=== PATIENT | male | born 1955 | race African-American/Black ===

== ENCOUNTER 2017-11-06 23:41 | Inpatient (IN) ==
[2017-11-07] MEDS ORDERED: ONDANSETRON 4 MG/2 ML VIAL IV STA (00:51)
[2017-11-07] MEDS ORDERED: ONDANSETRON 4 MG/2 ML VIAL ONE (01:04)
[2017-11-07] MEDS ORDERED: MORPHINE 4 MG/1 ML VIAL IV STA (01:19)
[2017-11-07] MEDS ORDERED: MORPHINE 4 MG/1 ML VIAL ONE (01:56)
[2017-11-07 01:59] LABS: Basophils % 0.5 % (0.0-0.8); Eosinophils % 0.1 % (0.00-10.9); Hematocrit 42.3 VOL% (42.0-52.0); Hemoglobin 14.2 GM/DL (14.0-18.0); Immature Granulocytes % 0.3 %; Immature Granulocytes Absolute 0.02 #; Lymphocytes # 1.5 10*3/uL (1.4-4.0); Lymphocytes % 19.1 % (21.2-54.2); Mean Corpuscular HGB Conc 33.6 GM/DL (32-36); Mean Corpuscular Hemoglobin 28 PG (27-34); Mean Corpuscular Volume 83.6 FL (87-102); Mean Platelet Volume 9.8 FL (9.6-12.0); Monocytes # 0.6 10*3/uL (0.11-0.8); Monocytes % 8.2 % (1.7-12.7); Neutrophils # 5.5 10*3/uL (1.4-7.4); Neutrophils % 71.8 % (38.7-73.9); Platelet Count 400 T/CUMM (130-400); Red Blood Count 5.06 MC/CUMM (3.8-5.5); Red Cell Distribution Width 11.7 % (9.3-17.3); White Blood Count 7.7 T/CUMM (4-12)
[2017-11-07 02:13] LABS: Apearance,Urine CLEAR (Clear); Bilirubin,Urine Negative (Negative); Blood, Urine Negative (Negative); Glucose,Urine (UA) Negative (Negative); Hyaline Casts,Urine 1 /LPF (0-3); Ketones,Urine Negative (Negative); Mucus,Urine Occasional /LPF (Occasional); Nitrite,Urine Negative (Negative); Protein,Urine 30 MG/DL; RBC,Urine <1 /HPF (0-4); Urine Color Yellow (Yellow); Urine Specific Gravity 1.011 (1.001-1.035); Urine Urobilinogen < 2.0 EU/DL (0.2-1.0); WBC,Urine <1 /HPF (0-6)
[2017-11-07 03:09] LABS: Alanine Aminotransferase 19 U/L (16-61); Albumin 4.6 G/DL (3.4-5.0); Alkaline Phosphatase 73 U/L (45-117); Aspartate Amino Transferase 16 U/L (0-37); Bilirubin,Total < 0.39 MG/DL (0.2-1.0); Blood Urea Nitrogen 43 MG/DL (7-18); Calcium 12.9 MG/DL (8.5-10.1); Glucose 96 MG/DL (74-106); Osmolality,Calculated 270.8 MOS/KG (273-304); Sodium 130 MMOL/L (136-145); Total Protein 8.2 G/DL (6.4-8.3); Troponin I Only < 0.015 NG/ML (0.00-0.045)
[2017-11-07 03:24] LABS: Potassium 7.7 MMOL/L (3.5-5.1)
[2017-11-07] MEDS ORDERED: CALCIUM GLUCONATE 2,000 MG in SODIUM CHLORIDE 0.9% 100 ML IV ONE (03:42)
[2017-11-07] MEDS ORDERED: SODIUM BICARBONATE 50 MEQ/50 ML VIAL IV STA (03:43)
[2017-11-07] MEDS ORDERED: DEXTROSE 50% 25 GM/50 ML VIAL IV STA (03:44)
[2017-11-07] MEDS ORDERED: INSULIN REGULAR 100 UNIT/ML IV STA (03:44)
[2017-11-07] MEDS ORDERED: SODIUM CHLORIDE 0.9% 2,000 ML IV STA (03:50)
[2017-11-07] MEDS ORDERED: SODIUM BICARBONATE 50 MEQ/50 ML SYRINGE IV ONE ×2 (03:58→04:00)
[2017-11-07] MEDS ORDERED: INSULIN REGULAR 100 UNIT/ML ONE (03:59)
[2017-11-07] MEDS: SODIUM CHLORIDE 0.9% 1,000 ML IV SCH (04:21)
[2017-11-07] MEDS ORDERED: ACETAMINOPHEN 325 MG TABLET PO PRN (05:41)
[2017-11-07] MEDS ORDERED: ONDANSETRON 4 MG/2 ML VIAL IV PRN (05:41)
[2017-11-07] MEDS ORDERED: DEXTROSE 50% 25 GM/50 ML VIAL IV PRN (05:53)
[2017-11-07] MEDS ORDERED: GLUCAGON 1 MG VIAL IM PRN (05:53)
[2017-11-07] MEDS ORDERED: SODIUM POLYSTYRENE SULFATE 15 GM/60 ML BOTTLE ONE (06:36)
[2017-11-07] MEDS: SODIUM POLYSTYRENE SULFATE 15 GM/60 ML BOTTLE PO SCH ×3 (06:39→19:06)
[2017-11-07] MEDS: INSULIN REGULAR 100 UNIT/ML SUBCUT SCH ×4 (09:09→21:47)
[2017-11-07] MEDS ORDERED: amLODIPine 10 MG TABLET ONE (09:13)
[2017-11-07] MEDS ORDERED: ASPIRIN CHEW 81 MG TABLET PO ONE (09:14)
[2017-11-07] MEDS ORDERED: LACOSAMIDE 50 MG TABLET ONE (09:14)
[2017-11-07] MEDS ORDERED: CARVEDILOL 3.125 MG TABLET ONE (09:14)
[2017-11-07] MEDS ORDERED: CLOPIDOGREL 75 MG TABLET ONE (09:14)
[2017-11-07] MEDS: GEMFIBROZIL 600 MG TABLET PO SCH ×2 (09:20→17:16)
[2017-11-07] MEDS: CLOPIDOGREL 75 MG TABLET PO SCH (09:21)
[2017-11-07] MEDS: amLODIPine 10 MG TABLET PO SCH (09:21)
[2017-11-07] MEDS: ASPIRIN EC 81 MG TABLET PO SCH (09:21)
[2017-11-07] MEDS: CARVEDILOL 6.25 MG TABLET PO SCH ×2 (09:22→21:41)
[2017-11-07] MEDS: LACOSAMIDE 50 MG TABLET PO SCH ×2 (09:22→21:40)
[2017-11-07] MEDS: MEMANTINE 10 MG TABLET PO SCH ×2 (10:34→21:41)
[2017-11-07] MEDS: FOLIC ACID 1 MG TABLET PO SCH (10:34)
[2017-11-07] MEDS: levETIRAcetam 250 MG TABLET PO SCH ×2 (10:35→21:40)
[2017-11-07] MEDS: ALLOPURINOL 100 MG TABLET PO SCH (10:36)
[2017-11-07] MEDS: FLUTICASONE 50 MCG NASAL SPRAY 16 GM BOTTLE BOTH NARES SCH (10:37)
[2017-11-07] MEDS ORDERED: ALBUTEROL 2.5 MG/3 ML NEB RESP TX PRN (11:00)
[2017-11-07] MEDS: tiZANidine 4 MG TABLET PO PRN ×2 (11:39→21:42)
[2017-11-07 13:06] LABS: Calcium 12.6 MG/DL (8.5-10.1); Osmolality,Calculated 279.2 MOS/KG (273-304); Potassium 5.6 MMOL/L (3.5-5.1)
[2017-11-07] MEDS: MONTELUKAST 10 MG TABLET PO SCH (21:40)
[2017-11-07] MEDS: DONEPEZIL 10 MG TABLET PO SCH (21:41)
[2017-11-07] MEDS: PRAVASTATIN 20 MG TABLET PO SCH (21:41)
[2017-11-08] MEDS: SODIUM CHLORIDE 0.9% 1,000 ML IV SCH (00:20)
[2017-11-08] MEDS: SODIUM POLYSTYRENE SULFATE 15 GM/60 ML BOTTLE PO SCH ×2 (00:41→06:11)
[2017-11-08 05:20] LABS: Basophils % 0.9 % (0.0-0.8); Eosinophils # 0.3 10*3/uL (0.0-0.87); Eosinophils % 5.4 % (0.00-10.9); Hematocrit 33.5 VOL% (42.0-52.0); Hemoglobin 11.5 GM/DL (14.0-18.0); Immature Granulocytes % 0.2 %; Immature Granulocytes Absolute 0.01 #; Lymphocytes # 1.6 10*3/uL (1.4-4.0); Lymphocytes % 34.9 % (21.2-54.2); Mean Corpuscular HGB Conc 34.3 GM/DL (32-36); Mean Corpuscular Hemoglobin 29 PG (27-34); Mean Corpuscular Volume 83.1 FL (87-102); Mean Platelet Volume 9.7 FL (9.6-12.0); Monocytes # 0.8 10*3/uL (0.11-0.8); Monocytes % 17.1 % (1.7-12.7); Neutrophils # 1.9 10*3/uL (1.4-7.4); Neutrophils % 41.5 % (38.7-73.9); Platelet Count 283 T/CUMM (130-400); Red Blood Count 4.03 MC/CUMM (3.8-5.5); Red Cell Distribution Width 11.3 % (9.3-17.3); White Blood Count 4.6 T/CUMM (4-12)
[2017-11-08 05:54] LABS: Eosinophils 3 % (0-10); Lymphocytes 41 % (20-55); Segmented Neutrophils 45 % (50-85); Total Cells Counted 100
[2017-11-08 06:01] LABS: Calcium 11.6 MG/DL (8.5-10.1); Osmolality,Calculated 286.3 MOS/KG (273-304); Potassium 3.9 MMOL/L (3.5-5.1); Thyroid Stimulating Hormone 0.743 uIU/ml (0.358-3.74)
[2017-11-08] MEDS: INSULIN REGULAR 100 UNIT/ML SUBCUT SCH ×4 (11:24→21:34)
[2017-11-08] MEDS: ASPIRIN EC 81 MG TABLET PO SCH (11:25)
[2017-11-08] MEDS: CARVEDILOL 6.25 MG TABLET PO SCH ×2 (11:25→22:30)
[2017-11-08] MEDS: GEMFIBROZIL 600 MG TABLET PO SCH ×2 (11:25→18:09)
[2017-11-08] MEDS: amLODIPine 10 MG TABLET PO SCH (11:26)
[2017-11-08] MEDS: levETIRAcetam 250 MG TABLET PO SCH ×2 (11:26→21:29)
[2017-11-08] MEDS: FOLIC ACID 1 MG TABLET PO SCH (11:26)
[2017-11-08] MEDS: FLUTICASONE 50 MCG NASAL SPRAY 16 GM BOTTLE BOTH NARES SCH (11:26)
[2017-11-08] MEDS: MEMANTINE 10 MG TABLET PO SCH ×2 (11:26→21:30)
[2017-11-08] MEDS: PANTOPRAZOLE 40 MG TABLET PO SCH (11:27)
[2017-11-08] MEDS: LACOSAMIDE 50 MG TABLET PO SCH ×2 (11:27→21:28)
[2017-11-08] MEDS: CLOPIDOGREL 75 MG TABLET PO SCH (11:27)
[2017-11-08] MEDS: ALLOPURINOL 100 MG TABLET PO SCH (11:27)
[2017-11-08] MEDS ORDERED: FUROSEMIDE 40 MG/4 ML VIAL IV ONE (12:26)
[2017-11-08] MEDS: ALBUTEROL/IPRATROPIUM 3 ML NEB RESP TX SCH ×2 (14:03→19:32)
[2017-11-08] MEDS ORDERED: guaiFENesin 200 MG/10 ML UDCUP PO PRN (15:00)
[2017-11-08] MEDS: AZITHROMYCIN 250 MG TABLET PO SCH (17:36)
[2017-11-08] MEDS: cefTRIAXone 1,000 MG in SYRINGE 1 EACH IV SCH (17:42)
[2017-11-08] MEDS: PRAVASTATIN 20 MG TABLET PO SCH (21:28)
[2017-11-08] MEDS: DONEPEZIL 10 MG TABLET PO SCH (21:28)
[2017-11-08] MEDS: MONTELUKAST 10 MG TABLET PO SCH (21:28)
[2017-11-08] MEDS: ENOXAPARIN 30 MG/0.3 ML SYRINGE SUBCUT SCH (21:29)
[2017-11-09] MEDS: SODIUM CHLORIDE 0.9% 1,000 ML IV SCH ×2 (02:50→16:32)
[2017-11-09 05:03] LABS: Basophils % 0.6 % (0.0-0.8); Eosinophils # 0.3 10*3/uL (0.0-0.87); Eosinophils % 5.8 % (0.00-10.9); Hematocrit 34.3 VOL% (42.0-52.0); Hemoglobin 11.4 GM/DL (14.0-18.0); Immature Granulocytes % 0.2 %; Immature Granulocytes Absolute 0.01 #; Lymphocytes # 1.6 10*3/uL (1.4-4.0); Lymphocytes % 30.7 % (21.2-54.2); Mean Corpuscular HGB Conc 33.2 GM/DL (32-36); Mean Corpuscular Hemoglobin 28 PG (27-34); Mean Corpuscular Volume 85.1 FL (87-102); Mean Platelet Volume 9.5 FL (9.6-12.0); Monocytes # 0.8 10*3/uL (0.11-0.8); Monocytes % 15.6 % (1.7-12.7); Neutrophils # 2.4 10*3/uL (1.4-7.4); Neutrophils % 47.1 % (38.7-73.9); Platelet Count 239 T/CUMM (130-400); Red Blood Count 4.03 MC/CUMM (3.8-5.5); Red Cell Distribution Width 11.3 % (9.3-17.3); White Blood Count 5.1 T/CUMM (4-12)
[2017-11-09 05:34] LABS: Eosinophils 6 % (0-10); Giant Platelets Few; Hypochromasia 1+; Lymphocytes 39 % (20-55); Platelet Estimate Adequate; Segmented Neutrophils 45 % (50-85); Total Cells Counted 100
[2017-11-09 05:35] LABS: Calcium 11.2 MG/DL (8.5-10.1); Osmolality,Calculated 287.8 MOS/KG (273-304); Potassium 3.4 MMOL/L (3.5-5.1)
[2017-11-09] MEDS ORDERED: POTASSIUM CHLORIDE 20 MEQ TABLET PO PRN (06:57)
[2017-11-09] MEDS: ALBUTEROL/IPRATROPIUM 3 ML NEB RESP TX SCH ×4 (07:22→19:13)
[2017-11-09 08:41] LABS: Total Protein (Chem) 6.6 G/DL (6.4-8.3)
[2017-11-09] MEDS: INSULIN REGULAR 100 UNIT/ML SUBCUT SCH ×3 (10:04→16:34)
[2017-11-09] MEDS: ASPIRIN EC 81 MG TABLET PO SCH (10:05)
[2017-11-09] MEDS: GEMFIBROZIL 600 MG TABLET PO SCH ×2 (10:05→16:37)
[2017-11-09] MEDS: levETIRAcetam 250 MG TABLET PO SCH ×2 (10:06→21:56)
[2017-11-09] MEDS: FLUTICASONE 50 MCG NASAL SPRAY 16 GM BOTTLE BOTH NARES SCH (10:06)
[2017-11-09] MEDS: CARVEDILOL 6.25 MG TABLET PO SCH ×2 (10:06→21:56)
[2017-11-09] MEDS: FOLIC ACID 1 MG TABLET PO SCH (10:06)
[2017-11-09] MEDS: amLODIPine 10 MG TABLET PO SCH (10:07)
[2017-11-09] MEDS: PANTOPRAZOLE 40 MG TABLET PO SCH (10:07)
[2017-11-09] MEDS: CLOPIDOGREL 75 MG TABLET PO SCH (10:07)
[2017-11-09] MEDS: MEMANTINE 10 MG TABLET PO SCH ×2 (10:07→21:56)
[2017-11-09] MEDS: ALLOPURINOL 100 MG TABLET PO SCH (10:08)
[2017-11-09] MEDS: LACOSAMIDE 50 MG TABLET PO SCH ×2 (10:08→21:55)
[2017-11-09] MEDS: AZITHROMYCIN 250 MG TABLET PO SCH (10:08)
[2017-11-09] MEDS: cefTRIAXone 1,000 MG in SYRINGE 1 EACH IV SCH (14:28)
[2017-11-09] MEDS: ENOXAPARIN 30 MG/0.3 ML SYRINGE SUBCUT SCH (21:55)
[2017-11-09] MEDS: MONTELUKAST 10 MG TABLET PO SCH (21:56)
[2017-11-09] MEDS: PRAVASTATIN 20 MG TABLET PO SCH (21:56)
[2017-11-09] MEDS: DONEPEZIL 10 MG TABLET PO SCH (22:09)
[2017-11-10] MEDS: INSULIN REGULAR 100 UNIT/ML SUBCUT SCH ×3 (04:59→11:31)
[2017-11-10] MEDS: SODIUM CHLORIDE 0.9% 1,000 ML IV SCH (06:00)
[2017-11-10] MEDS: ALBUTEROL/IPRATROPIUM 3 ML NEB RESP TX SCH ×3 (06:54→14:30)
[2017-11-10] MEDS: GEMFIBROZIL 600 MG TABLET PO SCH (07:58)
[2017-11-10] MEDS: FOLIC ACID 1 MG TABLET PO SCH (08:00)
[2017-11-10] MEDS: CARVEDILOL 6.25 MG TABLET PO SCH (08:00)
[2017-11-10] MEDS: ASPIRIN EC 81 MG TABLET PO SCH (08:00)
[2017-11-10] MEDS: CLOPIDOGREL 75 MG TABLET PO SCH (08:00)
[2017-11-10] MEDS: ALLOPURINOL 100 MG TABLET PO SCH (08:00)
[2017-11-10] MEDS: levETIRAcetam 250 MG TABLET PO SCH (08:00)
[2017-11-10] MEDS: AZITHROMYCIN 250 MG TABLET PO SCH (08:00)
[2017-11-10] MEDS: LACOSAMIDE 50 MG TABLET PO SCH (08:00)
[2017-11-10] MEDS: PANTOPRAZOLE 40 MG TABLET PO SCH (08:00)
[2017-11-10] MEDS: MEMANTINE 10 MG TABLET PO SCH (08:00)
[2017-11-10] MEDS: amLODIPine 10 MG TABLET PO SCH (08:01)
[2017-11-10] MEDS: FLUTICASONE 50 MCG NASAL SPRAY 16 GM BOTTLE BOTH NARES SCH (08:01)
[2017-11-10 09:45] LABS: Albumin (SPE) 4.4 G/DL (3.2-5.3); Albumin (SPE) Rel % 66.8 %; Alpha 1 (SPE) 0.1 G/DL (0.1-0.4); Alpha 1 (SPE) Rel % 2.4 %; Alpha 2 (SPE) 0.6 G/DL (0.4-1.0); Alpha 2 (SPE) Rel % 8.3 %; Beta (SPE) 0.7 G/DL (0.5-1.1); Beta (SPE) Rel % 11.2 %; Gamma (SPE) 0.8 G/DL (0.7-1.7)
[2017-11-10 09:46] LABS: Gamma (SPE) Rel % 11.3 %
[2017-11-10 11:00] LABS: Free PSA/PSA Ratio 0.1 ratio
[2017-11-10 11:39] VITALS: BP 133/67
[2017-11-10] MEDS: cefTRIAXone 1,000 MG in SYRINGE 1 EACH IV SCH (13:05)
== END 2017-11-10 15:16 | disposition home or self-care (01) | DRG 684 ==
LOC: N.ED 23:41 → N.EDINP 11-07 05:38 → N.TELES 11-07 10:30
PROVIDERS: ADMIT Internal Medicine; ATTEND Internal Medicine

== ENCOUNTER 2019-01-10 15:49 | Inpatient (IN) ==
[2019-01-10 16:27] LABS: Basophils % 0.3 % (0.0-0.8); Eosinophils # 0.1 10*3/uL (0.0-0.87); Eosinophils % 1.6 % (0.00-10.9); Hematocrit 27.4 VOL% (42.0-52.0); Hemoglobin 8.6 GM/DL (14.0-18.0); Immature Granulocytes % 0.4 %; Immature Granulocytes Absolute 0.03 #; Lymphocytes # 1.9 10*3/uL (1.4-4.0); Lymphocytes % 25.6 % (21.2-54.2); Mean Corpuscular HGB Conc 31.4 GM/DL (32-36); Monocytes % 13.5 % (1.7-12.7); NRBC # 0.02 10*3/uL; Neutrophils % 58.6 % (38.7-73.9); Platelet Count 255 T/CUMM (130-400); Red Blood Count 3.15 MC/CUMM (3.8-5.5); Red Cell Distribution Width 12.4 % (9.3-17.3); White Blood Count 7.5 T/CUMM (4-12)
[2019-01-10 16:43] LABS: Albumin 3.6 G/DL (3.4-5.0); Bilirubin,Total 0.5 MG/DL (0.2-1.0); Calcium 11.4 MG/DL (8.5-10.1); Osmolality,Calculated 308.1 MOS/KG (273-304); Total Protein 6.7 G/DL (6.4-8.3)
[2019-01-10] MEDS: METOPROLOL TARTRATE 50 MG TABLET PO SCH ×2 (19:02→21:00)
[2019-01-10] MEDS ORDERED: ONDANSETRON 4 MG/2 ML VIAL IV PRN (20:02)
[2019-01-10] MEDS ORDERED: ACETAMINOPHEN 325 MG TABLET PO PRN (20:02)
[2019-01-10 20:33] LABS: Basophils % 0.3 % (0.0-0.8); Eosinophils # 0.1 10*3/uL (0.0-0.87); Eosinophils % 1.8 % (0.00-10.9); Hematocrit 26.8 VOL% (42.0-52.0); Hemoglobin 8.3 GM/DL (14.0-18.0); Immature Granulocytes % 0.4 %; Immature Granulocytes Absolute 0.03 #; Lymphocytes # 2.2 10*3/uL (1.4-4.0); Mean Corpuscular Volume 88.2 FL (87-102); Mean Platelet Volume 10.3 FL (9.6-12.0); Monocytes % 10.6 % (1.7-12.7); NRBC # 0.02 10*3/uL; Neutrophils % 54.9 % (38.7-73.9); Platelet Count 231 T/CUMM (130-400); Red Blood Count 3.04 MC/CUMM (3.8-5.5); Red Cell Distribution Width 12.4 % (9.3-17.3); White Blood Count 6.8 T/CUMM (4-12)
[2019-01-10 21:08] LABS: Folate > 24.0 NG/ML (5.4-24.0); Vitamin B12 275 PG/ML (211-911)
[2019-01-10] MEDS: MONTELUKAST 10 MG TABLET PO SCH (21:20)
[2019-01-10] MEDS: DONEPEZIL 10 MG TABLET PO SCH (21:20)
[2019-01-10] MEDS: SIMVASTATIN 20 MG TABLET PO SCH (21:20)
[2019-01-10] MEDS: MEMANTINE 10 MG TABLET PO SCH (21:20)
[2019-01-10] MEDS: ENOXAPARIN 30 MG/0.3 ML SYRINGE SUBCUT SCH (21:20)
[2019-01-10] MEDS: levETIRAcetam 250 MG TABLET PO SCH (21:20)
[2019-01-10] MEDS: LACOSAMIDE 50 MG TABLET PO SCH (21:23)
[2019-01-10 21:34] LABS: Sedimentation Rate-Westergren 38 MM/HR (0-20)
[2019-01-10 23:37] LABS: Apearance,Urine CLEAR (Clear); Bilirubin,Urine Negative (Negative); Blood, Urine Negative (Negative); Glucose,Urine (UA) Negative (Negative); Ketones,Urine Negative (Negative); Mucus,Urine Occasional /LPF (Occasional); Nitrite,Urine Negative (Negative); Protein,Urine Negative; RBC,Urine <1 /HPF (0-4); Urine Color Colorless (Yellow); Urine Specific Gravity 1.009 (1.001-1.035); Urine Urobilinogen < 2.0 EU/DL (0.2-1.0); WBC,Urine <1 /HPF (0-6)
[2019-01-11 04:47] LABS: Basophils % 0.2 % (0.0-0.8); Eosinophils # 0.2 10*3/uL (0.0-0.87); Eosinophils % 2.9 % (0.00-10.9); Hematocrit 24.3 VOL% (42.0-52.0); Hemoglobin 7.8 GM/DL (14.0-18.0); Immature Granulocytes % 0.2 %; Immature Granulocytes Absolute 0.01 #; Lymphocytes # 2.2 10*3/uL (1.4-4.0); Lymphocytes % 37.4 % (21.2-54.2); Mean Corpuscular HGB Conc 32.1 GM/DL (32-36); Mean Corpuscular Volume 87.1 FL (87-102); Mean Platelet Volume 10.7 FL (9.6-12.0); Monocytes % 11.5 % (1.7-12.7); Neutrophils % 47.8 % (38.7-73.9); Platelet Count 235 T/CUMM (130-400); Red Blood Count 2.79 MC/CUMM (3.8-5.5); Red Cell Distribution Width 12.2 % (9.3-17.3); White Blood Count 5.8 T/CUMM (4-12)
[2019-01-11 05:01] LABS: Calcium 11.2 MG/DL (8.5-10.1); Troponin I 0.045 NG/ML (0.00-0.045)
[2019-01-11 05:09] LABS: Risk Ratio 4.86; Thyroid Stimulating Hormone 1.03 uIU/ml (0.358-3.74); VLDL CHOLESTEROL 77.2 MG/DL
[2019-01-11] MEDS ORDERED: CLOPIDOGREL 75 MG TABLET PO SCH (09:00)
[2019-01-11] MEDS: ASPIRIN EC 81 MG TABLET PO SCH (09:14)
[2019-01-11] MEDS: levETIRAcetam 250 MG TABLET PO SCH ×2 (09:14→21:03)
[2019-01-11] MEDS: METOPROLOL TARTRATE 50 MG TABLET PO SCH ×2 (09:14→21:25)
[2019-01-11] MEDS: ALLOPURINOL 100 MG TABLET PO SCH (09:15)
[2019-01-11] MEDS: PANTOPRAZOLE 40 MG TABLET PO SCH (09:15)
[2019-01-11] MEDS: MEMANTINE 10 MG TABLET PO SCH ×2 (09:15→21:26)
[2019-01-11] MEDS: LACOSAMIDE 50 MG TABLET PO SCH ×2 (09:16→21:25)
[2019-01-11] MEDS: SODIUM CHLORIDE 0.9% 1,000 ML IV SCH ×2 (09:16→18:57)
[2019-01-11 10:33] LABS: % Iron Saturation 34.7 % (18-50)
[2019-01-11 10:42] LABS: Hemoglobin A1 (Alkaline) 63.8 % (96.5-98.5); Hemoglobin A2 (Alkaline) 2.8 % (1.5-3.5)
[2019-01-11 13:51] LABS: Hemoglobin S (Alkaline) 33.4 %
[2019-01-11] MEDS ORDERED: CYANOCOBALAMIN 1000 MCG/1 ML VIAL IM ONE (17:48)
[2019-01-11] MEDS: DONEPEZIL 10 MG TABLET PO SCH (20:59)
[2019-01-11] MEDS: ENOXAPARIN 30 MG/0.3 ML SYRINGE SUBCUT SCH (21:02)
[2019-01-11] MEDS: MONTELUKAST 10 MG TABLET PO SCH (21:02)
[2019-01-11] MEDS: SIMVASTATIN 20 MG TABLET PO SCH (21:26)
[2019-01-12] MEDS: levETIRAcetam 250 MG TABLET PO SCH ×2 (08:31→22:19)
[2019-01-12] MEDS: CYANOCOBALAMIN 500 MCG TABLET PO SCH (08:31)
[2019-01-12] MEDS: PANTOPRAZOLE 40 MG TABLET PO SCH (08:31)
[2019-01-12] MEDS: ASPIRIN EC 81 MG TABLET PO SCH (08:31)
[2019-01-12] MEDS: METOPROLOL TARTRATE 50 MG TABLET PO SCH ×2 (08:31→22:19)
[2019-01-12] MEDS: LACOSAMIDE 50 MG TABLET PO SCH ×2 (08:31→22:16)
[2019-01-12] MEDS: MEMANTINE 10 MG TABLET PO SCH ×2 (08:32→22:17)
[2019-01-12] MEDS: ALLOPURINOL 100 MG TABLET PO SCH (08:34)
[2019-01-12 08:56] LABS: Basophils % 0.2 % (0.0-0.8); Eosinophils # 0.2 10*3/uL (0.0-0.87); Eosinophils % 3.5 % (0.00-10.9); Hematocrit 23.7 VOL% (42.0-52.0); Hemoglobin 7.3 GM/DL (14.0-18.0); Immature Granulocytes % 0.3 %; Immature Granulocytes Absolute 0.02 #; Lymphocytes # 1.5 10*3/uL (1.4-4.0); Lymphocytes % 24.2 % (21.2-54.2); Mean Corpuscular HGB Conc 30.8 GM/DL (32-36); Mean Corpuscular Volume 89.4 FL (87-102); Mean Platelet Volume 10.2 FL (9.6-12.0); Monocytes % 10.5 % (1.7-12.7); NRBC # 0.02 10*3/uL; Neutrophils % 61.3 % (38.7-73.9); Platelet Count 189 T/CUMM (130-400); Red Blood Count 2.65 MC/CUMM (3.8-5.5); Red Cell Distribution Width 12.5 % (9.3-17.3); White Blood Count 6.1 T/CUMM (4-12)
[2019-01-12] MEDS ORDERED: SODIUM CHLORIDE 0.9% 1,000 ML IV PRN (09:19)
[2019-01-12] MEDS: DONEPEZIL 10 MG TABLET PO SCH (22:18)
[2019-01-12] MEDS: MONTELUKAST 10 MG TABLET PO SCH (22:18)
[2019-01-12] MEDS: SIMVASTATIN 20 MG TABLET PO SCH (22:19)
[2019-01-12] MEDS: ENOXAPARIN 30 MG/0.3 ML SYRINGE SUBCUT SCH (22:20)
[2019-01-13 05:04] LABS: Calcium 10.6 MG/DL (8.5-10.1); Osmolality,Calculated 297.3 MOS/KG (273-304)
[2019-01-13 05:26] LABS: Basophils % 0.3 % (0.0-0.8); Eosinophils # 0.2 10*3/uL (0.0-0.87); Hematocrit 28.6 VOL% (42.0-52.0); Immature Granulocytes % 0.7 %; Immature Granulocytes Absolute 0.05 #; Lymphocytes # 1.6 10*3/uL (1.4-4.0); Lymphocytes % 23.4 % (21.2-54.2); Mean Corpuscular HGB Conc 32.2 GM/DL (32-36); Mean Corpuscular Volume 89.1 FL (87-102); Mean Platelet Volume 10.4 FL (9.6-12.0); NRBC # 0.05 10*3/uL; Neutrophils % 61.6 % (38.7-73.9); Platelet Count 192 T/CUMM (130-400); Red Cell Distribution Width 12.7 % (9.3-17.3); White Blood Count 6.9 T/CUMM (4-12)
[2019-01-13 05:28] LABS: Red Blood Count 3.21 MC/CUMM (3.8-5.5)
[2019-01-13 05:29] LABS: Hemoglobin 9.2 GM/DL (14.0-18.0)
[2019-01-13] MEDS: levETIRAcetam 250 MG TABLET PO SCH ×2 (09:11→20:57)
[2019-01-13] MEDS: MEMANTINE 10 MG TABLET PO SCH ×2 (09:11→20:59)
[2019-01-13] MEDS: CYANOCOBALAMIN 500 MCG TABLET PO SCH (09:11)
[2019-01-13] MEDS: METOPROLOL TARTRATE 50 MG TABLET PO SCH ×2 (09:11→20:57)
[2019-01-13] MEDS: LACOSAMIDE 50 MG TABLET PO SCH ×2 (09:11→20:58)
[2019-01-13] MEDS: ASPIRIN EC 81 MG TABLET PO SCH (09:11)
[2019-01-13] MEDS: PANTOPRAZOLE 40 MG TABLET PO SCH (09:11)
[2019-01-13] MEDS: ALLOPURINOL 100 MG TABLET PO SCH (09:11)
[2019-01-13] MEDS: DONEPEZIL 10 MG TABLET PO SCH (20:58)
[2019-01-13] MEDS: SIMVASTATIN 20 MG TABLET PO SCH (20:58)
[2019-01-13] MEDS: MONTELUKAST 10 MG TABLET PO SCH (20:58)
[2019-01-13] MEDS: ENOXAPARIN 40 MG/0.4 ML SYRINGE SUBCUT SCH (21:47)
[2019-01-14 06:07] LABS: Calcium 10.6 MG/DL (8.5-10.1); Osmolality,Calculated 289.7 MOS/KG (273-304)
[2019-01-14] MEDS: LACTATED RINGERS 1,000 ML IV SCH ×2 (06:34→23:27)
[2019-01-14] MEDS ORDERED: PROPOFOL 200 MG/20 ML VIAL IV ONE (08:00)
[2019-01-14] MEDS ORDERED: LIDOCAINE 2% 5 ML VIAL ONE (08:00)
[2019-01-14] MEDS: levETIRAcetam 250 MG TABLET PO SCH ×2 (08:54→23:22)
[2019-01-14] MEDS: METOPROLOL TARTRATE 50 MG TABLET PO SCH ×2 (08:55→23:23)
[2019-01-14] MEDS: LACOSAMIDE 50 MG TABLET PO SCH ×2 (08:56→23:24)
[2019-01-14] MEDS: PANTOPRAZOLE 40 MG TABLET PO SCH (08:56)
[2019-01-14] MEDS: ASPIRIN EC 81 MG TABLET PO SCH (08:56)
[2019-01-14] MEDS: CYANOCOBALAMIN 500 MCG TABLET PO SCH (14:59)
[2019-01-14] MEDS: ALLOPURINOL 100 MG TABLET PO SCH (15:00)
[2019-01-14] MEDS: MEMANTINE 10 MG TABLET PO SCH ×2 (15:00→23:23)
[2019-01-14] MEDS: CYANOCOBALAMIN 1000 MCG/1 ML VIAL IM SCH (15:00)
[2019-01-14] MEDS: ENOXAPARIN 40 MG/0.4 ML SYRINGE SUBCUT SCH (23:22)
[2019-01-14] MEDS: DONEPEZIL 10 MG TABLET PO SCH (23:23)
[2019-01-14] MEDS: SIMVASTATIN 20 MG TABLET PO SCH (23:23)
[2019-01-14] MEDS: MONTELUKAST 10 MG TABLET PO SCH (23:23)
[2019-01-15 05:25] LABS: Osmolality,Calculated 287.7 MOS/KG (273-304)
[2019-01-15] MEDS: ASPIRIN EC 81 MG TABLET PO SCH (09:40)
[2019-01-15] MEDS: PANTOPRAZOLE 40 MG TABLET PO SCH (09:40)
[2019-01-15] MEDS: levETIRAcetam 250 MG TABLET PO SCH ×2 (09:41→21:14)
[2019-01-15] MEDS: ALLOPURINOL 100 MG TABLET PO SCH (09:42)
[2019-01-15] MEDS: MEMANTINE 10 MG TABLET PO SCH ×2 (09:42→21:15)
[2019-01-15] MEDS: LACOSAMIDE 50 MG TABLET PO SCH ×2 (09:43→21:14)
[2019-01-15] MEDS: METOPROLOL TARTRATE 50 MG TABLET PO SCH ×2 (09:43→21:15)
[2019-01-15] MEDS: LACTATED RINGERS 1,000 ML IV SCH (09:44)
[2019-01-15] MEDS: CYANOCOBALAMIN 1000 MCG/1 ML VIAL IM SCH (09:44)
[2019-01-15] MEDS ORDERED: BISACODYL 5 MG TABLET PO ONE (12:00)
[2019-01-15] MEDS ORDERED: POLYETHYLENE GLYCOL POWDER 255 GM BOTTLE PO ONE (13:00)
[2019-01-15] MEDS: MONTELUKAST 10 MG TABLET PO SCH (21:15)
[2019-01-15] MEDS: DONEPEZIL 10 MG TABLET PO SCH (21:15)
[2019-01-15] MEDS: ENOXAPARIN 40 MG/0.4 ML SYRINGE SUBCUT SCH (21:15)
[2019-01-15] MEDS: SIMVASTATIN 20 MG TABLET PO SCH (21:15)
[2019-01-16 04:46] LABS: Basophils % 0.1 % (0.0-0.8); Eosinophils # 0.3 10*3/uL (0.0-0.87); Eosinophils % 3.5 % (0.00-10.9); Hematocrit 27.3 VOL% (42.0-52.0); Hemoglobin 9.1 GM/DL (14.0-18.0); Immature Granulocytes % 0.4 %; Immature Granulocytes Absolute 0.03 #; Lymphocytes # 1.3 10*3/uL (1.4-4.0); Lymphocytes % 17.1 % (21.2-54.2); Mean Corpuscular HGB Conc 33.3 GM/DL (32-36); Mean Corpuscular Volume 85.6 FL (87-102); Mean Platelet Volume 10.1 FL (9.6-12.0); Monocytes % 8.2 % (1.7-12.7); NRBC # 0.03 10*3/uL; Neutrophils % 70.7 % (38.7-73.9); Platelet Count 194 T/CUMM (130-400); Red Blood Count 3.19 MC/CUMM (3.8-5.5); Red Cell Distribution Width 13.1 % (9.3-17.3); White Blood Count 7.7 T/CUMM (4-12)
[2019-01-16 04:57] LABS: Calcium 10.1 MG/DL (8.5-10.1); Osmolality,Calculated 281.1 MOS/KG (273-304)
[2019-01-16 05:19] LABS: INR 1.1; PT Patient Result 11.4 SECS
[2019-01-16] MEDS ORDERED: LACTATED RINGERS 1,000 ML IV SCH (08:00)
[2019-01-16] MEDS ORDERED: PROPOFOL 200 MG/20 ML VIAL IV ONE (08:00)
[2019-01-16] MEDS ORDERED: LIDOCAINE 2% 5 ML VIAL ONE (08:00)
[2019-01-16] MEDS: CYANOCOBALAMIN 1000 MCG/1 ML VIAL IM SCH (14:41)
[2019-01-16] MEDS: levETIRAcetam 250 MG TABLET PO SCH ×2 (14:42→19:55)
[2019-01-16] MEDS: ASPIRIN EC 81 MG TABLET PO SCH (14:42)
[2019-01-16] MEDS: ALLOPURINOL 100 MG TABLET PO SCH (14:43)
[2019-01-16] MEDS: LACOSAMIDE 50 MG TABLET PO SCH ×2 (14:44→19:55)
[2019-01-16] MEDS: PANTOPRAZOLE 40 MG TABLET PO SCH (14:44)
[2019-01-16] MEDS: METOPROLOL TARTRATE 50 MG TABLET PO SCH ×2 (14:44→19:55)
[2019-01-16] MEDS: MEMANTINE 10 MG TABLET PO SCH ×2 (14:44→19:55)
[2019-01-16] MEDS: LACTATED RINGERS 1,000 ML IV SCH (14:49)
[2019-01-16] MEDS: ENOXAPARIN 40 MG/0.4 ML SYRINGE SUBCUT SCH ×2 (19:55→19:56)
[2019-01-16] MEDS: DONEPEZIL 10 MG TABLET PO SCH (19:55)
[2019-01-16] MEDS: SIMVASTATIN 20 MG TABLET PO SCH ×2 (19:55→19:56)
[2019-01-16] MEDS: MONTELUKAST 10 MG TABLET PO SCH ×2 (19:55→19:56)
[2019-01-17 05:28] LABS: Calcium 10.1 MG/DL (8.5-10.1); Osmolality,Calculated 282.1 MOS/KG (273-304)
[2019-01-17 08:34] VITALS: BP 151/82
[2019-01-17] MEDS: CYANOCOBALAMIN 1000 MCG/1 ML VIAL IM SCH (08:44)
[2019-01-17] MEDS: LACOSAMIDE 50 MG TABLET PO SCH (08:45)
[2019-01-17] MEDS: levETIRAcetam 250 MG TABLET PO SCH (08:45)
[2019-01-17] MEDS: ASPIRIN EC 81 MG TABLET PO SCH (08:45)
[2019-01-17] MEDS: ALLOPURINOL 100 MG TABLET PO SCH (08:45)
[2019-01-17] MEDS: PANTOPRAZOLE 40 MG TABLET PO SCH (08:45)
[2019-01-17] MEDS: MEMANTINE 10 MG TABLET PO SCH (08:45)
[2019-01-17] MEDS: METOPROLOL TARTRATE 50 MG TABLET PO SCH (08:45)
[2019-01-17] MEDS: LACTATED RINGERS 1,000 ML IV SCH (08:53)
== END 2019-01-17 09:40 | disposition home health service (06) | DRG 813 ==
LOC: N.ED 15:49 → N.EDINP 18:24 → INTOOBSV 18:24 → SUATTDRO 18:28 → N.TELEN 19:07 → SUATTDRO 01-12 12:53
PROVIDERS: ADMIT Hospitalist; ATTEND Internal Medicine

== ENCOUNTER 2020-01-20 14:11 | Inpatient (IN) ==
[2020-01-20 18:52] LABS: Apearance,Urine CLEAR (Clear); Bilirubin,Urine Negative (Negative); Blood, Urine Negative (Negative); Glucose,Urine (UA) Negative (Negative); Hyaline Casts,Urine 1 /LPF (0-3); Ketones,Urine Negative (Negative); Mucus,Urine Occasional /LPF (Occasional); Nitrite,Urine Negative (Negative); Protein,Urine Negative; RBC,Urine <1 /HPF (0-4); Squamous Epithelial Cell,Urine Occasional /HPF (0-10); Urine Color Yellow (Yellow); Urine Specific Gravity 1.012 (1.001-1.035); Urine Urobilinogen < 2.0 EU/DL (0.2-1.0); WBC,Urine 1 /HPF (0-6)
[2020-01-20 18:57] LABS: Barbiturates Screen,Urine Negative (Negative); Benzodiazepines Screen,Urine Negative (Negative); Cannabinoid Screen,Urine Negative (Negative); Opiate Screen,Urine Negative (Negative); Phencyclidine Screen,Urine Negative (Negative)
[2020-01-20 19:23] LABS: Basophils % 0.7 % (0.0-0.8); Eosinophils # 0.1 10*3/uL (0.0-0.87); Eosinophils % 1.6 % (0.00-10.9); Hematocrit 37.2 VOL% (42.0-52.0); Hemoglobin 12.1 GM/DL (14.0-18.0); Immature Granulocytes % 0.5 %; Immature Granulocytes Absolute 0.02 #; Lymphocytes # 1.6 10*3/uL (1.4-4.0); Mean Corpuscular HGB Conc 32.5 GM/DL (32-36); Mean Corpuscular Volume 86.5 FL (87-102); Mean Platelet Volume 10.6 FL (9.6-12.0); Monocytes % 14.2 % (1.7-12.7); Platelet Count 181 T/CUMM (130-400); Red Cell Distribution Width 12.9 % (9.3-17.3); White Blood Count 4.3 T/CUMM (4-12)
[2020-01-20 19:34] LABS: PT Patient Result 11.1 SECS (9.8-11.9); Partial Thromboplastin Time 26.3 SECS (23.9-33.8)
[2020-01-20 19:37] LABS: Alanine Aminotransferase 16 U/L (16-61); Albumin 4.1 G/DL (3.4-5.0); Alkaline Phosphatase 53 U/L (45-117); Aspartate Amino Transferase 34 U/L (0-37); Blood Urea Nitrogen 32 MG/DL (7-18); Calcium 11.6 MG/DL (8.5-10.1); Estimated Glom Filtration Rate 36 ML/MIN; Glucose 67 MG/DL (74-106); Osmolality,Calculated 281.5 MOS/KG (273-304); Total Protein 8.3 G/DL (6.4-8.3); Troponin I 0.045 NG/ML (0.00-0.045)
[2020-01-20] MEDS ORDERED: MAGNESIUM SULF RIDER 2 GM in PREMIX 1 EACH IV STA (19:45)
[2020-01-20] MEDS ORDERED: DEXTROSE 50% 25 GM/50 ML VIAL IV STA (19:45)
[2020-01-20] MEDS ORDERED: DEXTROSE 50% 25 GM/50 ML SYRINGE IV ONE (19:46)
[2020-01-20] MEDS ORDERED: DOCUSATE SODIUM 100 MG CAPSULE PO PRN (20:41)
[2020-01-20] MEDS ORDERED: DEXTROSE 50% 25 GM/50 ML VIAL IV PRN (20:41)
[2020-01-20] MEDS ORDERED: LACTULOSE 20 GM/30 ML UDCUP PO PRN (20:41)
[2020-01-20] MEDS ORDERED: GLUCAGON 1 MG VIAL IM PRN (20:41)
[2020-01-20] MEDS ORDERED: ONDANSETRON 4 MG/2 ML VIAL IV PRN (20:41)
[2020-01-20] MEDS ORDERED: HYDROCORTISONE 2.5% RECTAL CREAM 30 GM TUBE TOP PRN (20:53)
[2020-01-21] MEDS ORDERED: tiZANidine 4 MG TABLET PO PRN (00:12)
[2020-01-21] MEDS: DILTIAZEM CD 120 MG CAPSULE PO SCH ×2 (02:59→21:07)
[2020-01-21] MEDS: DOCUSATE SODIUM 100 MG CAPSULE PO SCH ×3 (03:00→21:06)
[2020-01-21] MEDS: CARBIDOPA/LEVODOPA 25-100 MG TABLET PO SCH ×4 (03:00→21:07)
[2020-01-21 03:10] LABS: Basophils % 0.5 % (0.0-0.8); Eosinophils # 0.1 10*3/uL (0.0-0.87); Eosinophils % 2.6 % (0.00-10.9); Hematocrit 32.2 VOL% (42.0-52.0); Hemoglobin 10.7 GM/DL (14.0-18.0); Immature Granulocytes % 0.2 %; Immature Granulocytes Absolute 0.01 #; Lymphocytes # 1.4 10*3/uL (1.4-4.0); Lymphocytes % 33.6 % (21.2-54.2); Mean Corpuscular HGB Conc 33.2 GM/DL (32-36); Mean Corpuscular Volume 85.4 FL (87-102); Mean Platelet Volume 10.3 FL (9.6-12.0); Monocytes % 15.5 % (1.7-12.7); Neutrophils % 47.6 % (38.7-73.9); Platelet Count 167 T/CUMM (130-400); Red Blood Count 3.77 MC/CUMM (3.8-5.5); Red Cell Distribution Width 12.8 % (9.3-17.3); White Blood Count 4.3 T/CUMM (4-12)
[2020-01-21 03:24] LABS: Osmolality,Calculated 282.4 MOS/KG (273-304)
[2020-01-21 03:27] LABS: Risk Ratio 5.19; VLDL CHOLESTEROL 54.6 MG/DL
[2020-01-21 05:34] LABS: Parathyroid Hormone Intact 156.4 PG/ML (18.4-80.1)
[2020-01-21] MEDS: gemfibroziL 600 MG TABLET PO SCH ×2 (07:30→16:51)
[2020-01-21] MEDS: POTASSIUM CHLORIDE INJ 40 MEQ in DEXTROSE 5% 1,000 ML IV SCH (08:38)
[2020-01-21] MEDS: MEMANTINE 10 MG TABLET PO SCH ×2 (09:00→21:07)
[2020-01-21] MEDS ORDERED: DIVALPROEX 500 MG TABLET PO SCH (09:00)
[2020-01-21] MEDS ORDERED: CLOPIDOGREL 75 MG TABLET PO SCH (09:00)
[2020-01-21] MEDS: LACOSAMIDE 50 MG TABLET PO SCH ×2 (09:00→21:06)
[2020-01-21] MEDS: ENOXAPARIN 30 MG/0.3 ML SYRINGE SUBCUT SCH (14:00)
[2020-01-21] MEDS: ASPIRIN EC 81 MG TABLET PO SCH (16:48)
[2020-01-21] MEDS: PANTOPRAZOLE 40 MG TABLET PO SCH (16:50)
[2020-01-21] MEDS: LORATADINE 10 MG TABLET PO SCH (16:50)
[2020-01-21] MEDS: allopurinoL 100 MG TABLET PO SCH (16:51)
[2020-01-21] MEDS: SERTRALINE 50 MG TABLET PO SCH (16:51)
[2020-01-21] MEDS ORDERED: SIMVASTATIN 20 MG TABLET PO SCH (21:00)
[2020-01-21] MEDS ORDERED: SIMVASTATIN 80 MG TABLET PO SCH (21:00)
[2020-01-21] MEDS: DONEPEZIL 10 MG TABLET PO SCH (21:07)
[2020-01-21] MEDS: ROSUVASTATIN 10 MG TABLET PO SCH (21:07)
[2020-01-21] MEDS: DIVALPROEX 500 MG TABLET PO SCH (21:13)
[2020-01-22 05:10] LABS: Basophils % 0.3 % (0.0-0.8); Eosinophils # 0.1 10*3/uL (0.0-0.87); Eosinophils % 1.7 % (0.00-10.9); Hematocrit 29.9 VOL% (42.0-52.0); Hemoglobin 10.3 GM/DL (14.0-18.0); Immature Granulocytes % 0.1 %; Immature Granulocytes Absolute 0.01 #; Lymphocytes # 1.3 10*3/uL (1.4-4.0); Lymphocytes % 19.5 % (21.2-54.2); Mean Corpuscular HGB Conc 34.4 GM/DL (32-36); Mean Corpuscular Volume 83.8 FL (87-102); Mean Platelet Volume 10.7 FL (9.6-12.0); Monocytes % 12.2 % (1.7-12.7); Neutrophils % 66.2 % (38.7-73.9); Platelet Count 160 T/CUMM (130-400); Red Blood Count 3.57 MC/CUMM (3.8-5.5); Red Cell Distribution Width 12.5 % (9.3-17.3); White Blood Count 6.9 T/CUMM (4-12)
[2020-01-22] MEDS: POTASSIUM CHLORIDE INJ 40 MEQ in DEXTROSE 5% 1,000 ML IV SCH (05:51)
[2020-01-22 06:04] LABS: Calcium 11.1 MG/DL (8.5-10.1); Osmolality,Calculated 282.4 MOS/KG (273-304)
[2020-01-22] MEDS: DOCUSATE SODIUM 100 MG CAPSULE PO SCH ×2 (08:29→21:25)
[2020-01-22] MEDS: allopurinoL 100 MG TABLET PO SCH (08:29)
[2020-01-22] MEDS: DIVALPROEX 500 MG TABLET PO SCH ×2 (08:29→21:25)
[2020-01-22] MEDS: SERTRALINE 50 MG TABLET PO SCH (08:30)
[2020-01-22] MEDS: LORATADINE 10 MG TABLET PO SCH (08:30)
[2020-01-22] MEDS: LACOSAMIDE 50 MG TABLET PO SCH ×2 (08:30→21:26)
[2020-01-22] MEDS: CARBIDOPA/LEVODOPA 25-100 MG TABLET PO SCH ×3 (08:30→21:26)
[2020-01-22] MEDS: gemfibroziL 600 MG TABLET PO SCH ×2 (08:30→15:32)
[2020-01-22] MEDS: MEMANTINE 10 MG TABLET PO SCH ×2 (08:30→21:25)
[2020-01-22] MEDS: PANTOPRAZOLE 40 MG TABLET PO SCH (08:30)
[2020-01-22] MEDS: ASPIRIN EC 81 MG TABLET PO SCH (08:30)
[2020-01-22] MEDS: ENOXAPARIN 30 MG/0.3 ML SYRINGE SUBCUT SCH (08:31)
[2020-01-22] MEDS ORDERED: cloNIDine 0.1 MG/24 HR PATCH TRANSDERM SCH (09:00)
[2020-01-22] MEDS: DILTIAZEM CD 120 MG CAPSULE PO SCH (21:26)
[2020-01-22] MEDS: MONTELUKAST 10 MG TABLET PO SCH (21:26)
[2020-01-22] MEDS: ROSUVASTATIN 10 MG TABLET PO SCH (21:26)
[2020-01-22] MEDS: DONEPEZIL 10 MG TABLET PO SCH (21:27)
[2020-01-23] MEDS: POTASSIUM CHLORIDE INJ 40 MEQ in DEXTROSE 5% 1,000 ML IV SCH ×2 (02:24→20:46)
[2020-01-23 04:11] LABS: Basophils % 0.6 % (0.0-0.8); Eosinophils # 0.2 10*3/uL (0.0-0.87); Eosinophils % 3.7 % (0.00-10.9); Hematocrit 28.9 VOL% (42.0-52.0); Hemoglobin 9.7 GM/DL (14.0-18.0); Immature Granulocytes % 0.2 %; Immature Granulocytes Absolute 0.01 #; Lymphocytes # 1.6 10*3/uL (1.4-4.0); Lymphocytes % 31.7 % (21.2-54.2); Mean Corpuscular HGB Conc 33.6 GM/DL (32-36); Mean Corpuscular Volume 84.3 FL (87-102); Mean Platelet Volume 10.8 FL (9.6-12.0); Monocytes % 14.3 % (1.7-12.7); Neutrophils % 49.5 % (38.7-73.9); Platelet Count 146 T/CUMM (130-400); Red Blood Count 3.43 MC/CUMM (3.8-5.5); Red Cell Distribution Width 12.9 % (9.3-17.3); White Blood Count 4.9 T/CUMM (4-12)
[2020-01-23 04:24] LABS: Calcium 11.4 MG/DL (8.5-10.1); Osmolality,Calculated 275.8 MOS/KG (273-304)
[2020-01-23] MEDS ORDERED: TUBERCULIN SKIN TEST 0.1 ML SYRINGE INTRADERM ONE (07:35)
[2020-01-23] MEDS: gemfibroziL 600 MG TABLET PO SCH ×2 (07:40→15:38)
[2020-01-23] MEDS: DOCUSATE SODIUM 100 MG CAPSULE PO SCH ×2 (08:01→20:47)
[2020-01-23] MEDS: LORATADINE 10 MG TABLET PO SCH (08:01)
[2020-01-23] MEDS: ASPIRIN EC 81 MG TABLET PO SCH (08:01)
[2020-01-23] MEDS: CARBIDOPA/LEVODOPA 25-100 MG TABLET PO SCH ×3 (08:02→20:48)
[2020-01-23] MEDS: ENOXAPARIN 30 MG/0.3 ML SYRINGE SUBCUT SCH (08:02)
[2020-01-23] MEDS: SERTRALINE 50 MG TABLET PO SCH (08:02)
[2020-01-23] MEDS: PANTOPRAZOLE 40 MG TABLET PO SCH (08:02)
[2020-01-23] MEDS: LACOSAMIDE 50 MG TABLET PO SCH ×2 (08:02→20:49)
[2020-01-23] MEDS: MEMANTINE 10 MG TABLET PO SCH ×2 (08:02→20:48)
[2020-01-23] MEDS: DIVALPROEX 500 MG TABLET PO SCH ×2 (08:02→20:49)
[2020-01-23] MEDS: allopurinoL 100 MG TABLET PO SCH (08:02)
[2020-01-23] MEDS: DONEPEZIL 10 MG TABLET PO SCH (20:47)
[2020-01-23] MEDS: DILTIAZEM CD 120 MG CAPSULE PO SCH (20:47)
[2020-01-23] MEDS: MONTELUKAST 10 MG TABLET PO SCH (20:48)
[2020-01-23] MEDS: ROSUVASTATIN 10 MG TABLET PO SCH (20:48)
[2020-01-24 05:11] LABS: Basophils % 0.2 % (0.0-0.8); Eosinophils # 0.2 10*3/uL (0.0-0.87); Hematocrit 28.9 VOL% (42.0-52.0); Hemoglobin 9.7 GM/DL (14.0-18.0); Immature Granulocytes % 0.6 %; Immature Granulocytes Absolute 0.03 #; Lymphocytes # 1.5 10*3/uL (1.4-4.0); Lymphocytes % 29.5 % (21.2-54.2); Mean Corpuscular HGB Conc 33.6 GM/DL (32-36); Mean Corpuscular Volume 84.5 FL (87-102); Mean Platelet Volume 10.6 FL (9.6-12.0); Monocytes % 14.6 % (1.7-12.7); Neutrophils % 51.1 % (38.7-73.9); Platelet Count 161 T/CUMM (130-400); Red Blood Count 3.42 MC/CUMM (3.8-5.5); Red Cell Distribution Width 12.7 % (9.3-17.3)
[2020-01-24 05:30] LABS: PT Patient Result 10.5 SECS (9.8-11.9)
[2020-01-24 05:33] LABS: Calcium 11.8 MG/DL (8.5-10.1); Osmolality,Calculated 283.3 MOS/KG (273-304)
[2020-01-24] MEDS ORDERED: LIDOCAINE 2% 5 ML VIAL ONE (09:00)
[2020-01-24] MEDS ORDERED: propofoL 200 MG/20 ML VIAL IV ONE (09:00)
[2020-01-24] MEDS ORDERED: ETOMIDATE 20 MG/10 ML VIAL IV ONE (09:00)
[2020-01-24] MEDS ORDERED: HYDROmorphone 2 MG/1 ML VIAL IV PRN (15:55)
[2020-01-24] MEDS: LORATADINE 10 MG TABLET PO SCH (18:19)
[2020-01-24] MEDS: ASPIRIN EC 81 MG TABLET PO SCH (18:19)
[2020-01-24] MEDS: gemfibroziL 600 MG TABLET PO SCH ×2 (18:19→18:22)
[2020-01-24] MEDS: PANTOPRAZOLE 40 MG TABLET PO SCH (18:20)
[2020-01-24] MEDS: MEMANTINE 10 MG TABLET PO SCH ×2 (18:20→21:02)
[2020-01-24] MEDS: CARBIDOPA/LEVODOPA 25-100 MG TABLET PO SCH ×2 (18:20→21:03)
[2020-01-24] MEDS: DOCUSATE SODIUM 100 MG CAPSULE PO SCH ×2 (18:20→21:02)
[2020-01-24] MEDS: DIVALPROEX 500 MG TABLET PO SCH ×2 (18:20→21:03)
[2020-01-24] MEDS: allopurinoL 100 MG TABLET PO SCH (18:21)
[2020-01-24] MEDS: LACOSAMIDE 50 MG TABLET PO SCH ×2 (18:21→21:03)
[2020-01-24] MEDS: SERTRALINE 50 MG TABLET PO SCH (18:21)
[2020-01-24] MEDS ORDERED: POTASSIUM CHLORIDE 20 MEQ/15 ML UDCUP PEG ONE (20:42)
[2020-01-24] MEDS ORDERED: HYDROmorphone 2 MG/1 ML VIAL IM PRN (20:43)
[2020-01-24] MEDS: DILTIAZEM CD 120 MG CAPSULE PO SCH (21:02)
[2020-01-24] MEDS: ROSUVASTATIN 10 MG TABLET PO SCH (21:02)
[2020-01-24] MEDS: MONTELUKAST 10 MG TABLET PO SCH (21:03)
[2020-01-24] MEDS: DONEPEZIL 10 MG TABLET PO SCH (21:03)
[2020-01-24] MEDS: LACTATED RINGERS 1,000 ML IV SCH (21:07)
[2020-01-24] MEDS: POTASSIUM CHLORIDE INJ 40 MEQ in DEXTROSE 5% 1,000 ML IV SCH (21:07)
[2020-01-25 06:59] LABS: Basophils % 0.3 % (0.0-0.8); Eosinophils # 0.2 10*3/uL (0.0-0.87); Eosinophils % 3.1 % (0.00-10.9); Hematocrit 28.9 VOL% (42.0-52.0); Hemoglobin 9.6 GM/DL (14.0-18.0); Immature Granulocytes % 0.4 %; Immature Granulocytes Absolute 0.03 #; Lymphocytes # 1.5 10*3/uL (1.4-4.0); Lymphocytes % 22.1 % (21.2-54.2); Mean Corpuscular HGB Conc 33.2 GM/DL (32-36); Mean Corpuscular Volume 85.3 FL (87-102); Mean Platelet Volume 10.7 FL (9.6-12.0); Monocytes % 13.8 % (1.7-12.7); Neutrophils % 60.3 % (38.7-73.9); Platelet Count 185 T/CUMM (130-400); Red Blood Count 3.39 MC/CUMM (3.8-5.5); Red Cell Distribution Width 13.2 % (9.3-17.3); White Blood Count 6.9 T/CUMM (4-12)
[2020-01-25 07:19] LABS: Calcium 11.7 MG/DL (8.5-10.1); Osmolality,Calculated 279.3 MOS/KG (273-304)
[2020-01-25] MEDS: DIVALPROEX 500 MG TABLET PO SCH (08:26)
[2020-01-25] MEDS: MEMANTINE 10 MG TABLET PO SCH (08:27)
[2020-01-25] MEDS: CARBIDOPA/LEVODOPA 25-100 MG TABLET PO SCH (08:27)
[2020-01-25] MEDS: SERTRALINE 50 MG TABLET PO SCH (08:27)
[2020-01-25] MEDS: DOCUSATE SODIUM 100 MG CAPSULE PO SCH (08:27)
[2020-01-25] MEDS: PANTOPRAZOLE 40 MG TABLET PO SCH (08:27)
[2020-01-25] MEDS: gemfibroziL 600 MG TABLET PO SCH (08:27)
[2020-01-25] MEDS: ASPIRIN EC 81 MG TABLET PO SCH (08:28)
[2020-01-25] MEDS: allopurinoL 100 MG TABLET PO SCH (08:28)
[2020-01-25] MEDS: LACTATED RINGERS 1,000 ML IV SCH (08:28)
[2020-01-25] MEDS: LORATADINE 10 MG TABLET PO SCH (08:28)
[2020-01-25] MEDS: LACOSAMIDE 50 MG TABLET PO SCH (11:08)
[2020-01-25 12:51] VITALS: BP 145/82
== END 2020-01-25 14:15 | disposition swing bed (61) | DRG 57 ==
LOC: N.ED 14:11 → N.EDINP 20:27 → N.3E 01-21 00:02
PROVIDERS: ADMIT Hospitalist; ATTEND Hospitalist
PROC: EGDWPEG (ICD-10-PCS; 2020-01-24 10:05)